=== PATIENT | female | born 1970 | race African-American/Black ===

== ENCOUNTER 2018-01-09 19:48 | Emergency (ER) | payer OTHER ==
[~2018-01-09] VITALS: Ht 175.3 cm; Wt 131.5 kg
[~2018-01-09 19:48] MED LIST: ATIVAN0.5 MG ORAL; AZITHROMYCIN250 MG PO; BACTROBAN 2% OI15 GM TOPIC; DIOVAN PO; GUAIFENESIN DM118 M1 PO; HYDROCHLOROTHIAZIDE PO; LOSARTAN POTASS25 MG ORAL; POTASSIUM CHLO20 ME1 ORAL
[2018-01-09 20:36] VITALS: BP 151/79
[2018-01-09] MEDS ORDERED: DiphenhydrAMINE 50mg/ml Inj IVP ONE (20:45)
[2018-01-09] MEDS ORDERED: Metoclopramide 10mg/2ml Inj IVP ONE (20:45)
[2018-01-09 21:08] LABS: BASOPHILS % (AUTO) 1.2 % (0.0-2.0); HEMATOCRIT 31.5 % (37.0-47.0); HEMOGLOBIN 9.3 G/DL (12.0-16.0); LYMPHOCYTES % (AUTO) 33.5 % (20.0-45.0); MEAN CORPUSCULAR VOLUME 70 FL (80-99); MONOCYTES % (AUTO) 6.3 % (1.0-10.0); PLATELET COUNT 368 K/UL (150-450); RED BLOOD COUNT 4.47 M/UL (4.20-5.40); RED CELL DISTRIBUTION WIDTH 16.5 % (11.6-14.8); WHITE BLOOD COUNT 6.2 K/UL (4.8-10.8)
[2018-01-09] MEDS ORDERED: LORazepam Inj 2mg/ml 1ml IV ONE (21:15)
[2018-01-09 21:21] LABS: ANION GAP 7 mmol/L (5-15); BLOOD UREA NITROGEN 10 mg/dL (7-18); CALCIUM 9.4 MG/DL (8.5-10.1); CARBON DIOXIDE 28 MMOL/L (21-32); CHLORIDE 104 MMOL/L (98-107); CREATININE 0.9 MG/DL (0.55-1.30); POTASSIUM 3.5 MMOL/L (3.5-5.1); SODIUM 139 MMOL/L (136-145)
[2018-01-09 21:26] LABS: ALANINE AMINOTRANSFERASE 21 U/L (12-78); ALBUMIN 3.5 G/DL (3.4-5.0); ALBUMIN/GLOBULIN RATIO 0.8 (1.0-2.7); ALKALINE PHOSPHATASE 96 U/L (46-116); ASPARTATE AMINO TRANSFERASE 11 U/L (15-37); BILIRUBIN,TOTAL 0.5 MG/DL (0.2-1.0)
[2018-01-09] MEDS ORDERED: Ketorolac 30mg Inj IV ONE (21:30)
--- NOTE | 2018-01-09 22:08 | Emergency Room Report ---
History of Present Illness General Chief Complaint: Hypertension Source: Patient Present Illness HPI 47-year-old female with history of migraines and hypertension, noncompliant with her HCTZ 25 a day, only taking [id number] migraine medications presents with 2 days of elevated blood pressure and headache that is consistent with migraine, positive photophobia, reports the pain is in the frontal and occipital areas, denies any numbness tingling weakness, reports no new symptoms. Reports that it was not sudden onset and is consistent with her migraines. She also reports nausea but no vomiting. Allergies: Coded Allergies: AMOXICILLIN (Verified Allergy, Severe, rash, 03/09/13) PENICILLINS (Verified Allergy, Severe, SOB, 05/19/12) ALL CILLINS Patient History Past Medical History: see triage record Last Menstrual Period: 01/02/2018 Now: No : 6 Para: 4 Reviewed Nursing Documentation: PMH: Agreed; PSxH: Agreed Nursing Documentation-PMH Past Medical History: No History, Except For Hx Cardiac Problems: Yes - PALPITATIONS Hx Hypertension: Yes Hx COPD: No - HX OF BRONCHITIS, SLEEP APNEA Hx Gastrointestinal Problems: No - fibroids Review of Systems All Other Systems: negative except mentioned in HPI Physical Exam Vital Signs Date Time Temp Pulse Resp B/P (MAP) Pulse Ox O2 Delivery O2 Flow Rate FiO2 01/09/18 20:05 98.3 89 18 176/123 98 98.2 01/09/18 20:36 Room Air Sp02 EP Interpretation: reviewed, normal General Appearance: no apparent distress, alert, non-toxic Head: normocephalic Eyes: bilateral eye normal inspection, bilateral eye PERRL, bilateral eye EOMI ENT: normal ENT inspection, hearing grossly normal, normal pharynx, no angioedema, normal voice, moist mucus membranes Neck: normal inspection, full range of motion, supple, supple/symm/no masses Respiratory: chest non-tender, lungs clear, normal breath sounds, chest symmetrical, palpation of chest normal Cardiovascular #1: normal peripheral pulses, regular rate, rhythm Cardiovascular #2: 2+ radial (R), 2+ radial (L) Gastrointestinal: normal inspection, non tender, soft, no mass, no guarding, no rebound Rectal: deferred Genitourinary: normal inspection, no CVA tenderness Musculoskeletal: back normal, gait/station normal, normal range of motion, non- tender, no calf tenderness Neurologic: alert, oriented x3, responsive, deburrer III-XII nml as tested, motor strength/tone normal, sensory intact, cerebellar normal, normal gait, speech normal Psychiatric: judgement/insight normal, memory normal, mood/affect normal, no suicidal/homicidal ideation Skin: normal color, no rash, warm/dry, normal turgor Lymphatic: no adenopathy Medical Decision Making Diagnostic Impression: Primary Impression: Hypertension Additional Impression: Headache ER Course Patient with significant hypertension, likely secondary to noncompliance with meds and headache, attempted to give Reglan and Benadryl, but she felt that made her restless, and pressure still elevated. She refused Ativan and Toradol , but did take her home dose of HCTZ 25. Her neuro exam is normal, she did not have a sudden onset severe worst headache of her life blench pressure is still somewhat elevated but has improved, and she'll be discharged with prescriptions for Fioricet, HCTZ, and follow-up with PMD. Diagnosis hypertension, headache, possible migraine. EKG Diagnostic Results EKG Time: 20:53 EP Interpretation: no st-t changes, no twi's, rate 84 Rate: normal Rhythm: NSR ST Segments: no acute changes Rhythm Strip Diag. Results Rhythm Strip Time: 22:06 EP Interpretation: yes Rate: 73 Rhythm: NSR, no PVC's, no ectopy Chest X-Ray Diagnostic Results Chest X-Ray Diagnostic Results : Chest X-Ray Ordered: Yes # of Views/Limited/Complete: 1 View Indication: Other - htn EP Interpretation: Yes Interpretation: no consolidation, no effusion, no pneumothorax, no acute cardiopulmonary disease Impression: No acute disease Electronically Signed by: Yadira Han MD Last Vital Signs Date Time Temp Pulse Resp B/P (MAP) Pulse Ox O2 Delivery O2 Flow Rate FiO2 01/09/18 20:37 87 14 Room Air 01/09/18 20:36 98.6 151/79 100 98.6 Status: improved Disposition: HOME, SELF-CARE Condition: Stable Scripts Hydrochlorothiazide* (HYDROCHLOROTHIAZIDE*) 25 Mg Tablet 25 MG ORAL DAILY for 30 Days, #30 TAB Prov: YADIRA HAN M.D 01/09/18 Ibuprofen* (MOTRIN*) 600 Mg Tablet 600 MG ORAL THREE TIMES A DAY, #20 TAB 0 Refills Prov: YADIRA HAN M.D 01/09/18 Acetamin/Butalbital/Caffeine* (FIORICET*) 1 Ea Tab 1 TAB ORAL Q4H, #10 TAB Prov: YADIRA HAN M.D 01/09/18 Referrals: [facility],REFERRING (PCP) YADIRA HAN M.D Jan 09, 2018 22:08
[2018-01-09] MEDS ORDERED: FIORICET1 EA ORAL (22:10)
[2018-01-09] MEDS ORDERED: IBUPROFEN600 MG ORAL (22:11)
[2018-01-09] MEDS ORDERED: HYDROCHLOROTHIA25 MG ORAL (22:11)
[2018-01-09 22:36] VITALS: BP 153/76
[2018-01-09 22:39] VITALS: BP 153/76
--- NOTE | 2018-01-10 09:13 | Diagnostic Imaging Report ---
Indication: Chest pain Technique: One view of the chest Comparison: 08/07/2013 Findings: Lungs and pleural spaces are clear. Heart size is normal. No significant interim change Impression: No acute process
--- NOTE | 2018-01-10 14:14 | Cardiology Report ---
APPROVED REPORT EKG Measurement Heart [id number] Normal sinus rhythm Possible Left atrial enlargement Left ventricular hypertrophy Abnormal ECG
== END 2018-01-09 22:41 | disposition home or self-care (01) ==
LOC: EMR 21:11
DX: I10 Essential (primary) hypertension (principal); R51 Headache; G47.30 Sleep apnea, unspecified; Z91.14 Patient's other noncompliance with medication regimen
CPT/HCPCS: 36415; 71045; 80053; 84484; 85025; 93005; 96374; 96375; 99284; J1200; J2765